=== PATIENT | male | born 1980 | race African-American/Black ===

== ENCOUNTER 2020-02-12 10:55 | Emergency (ER) | payer SELFPAY ==
[2020-02-12] MEDS ORDERED: Aspirin Chewable 81 MG TAB ONE (11:29)
[2020-02-12] MEDS ORDERED: Ketorolac Tromethamine 30 MG/ML VIAL ONE (12:19)
== END 2020-02-12 13:01 | disposition home or self-care (01) ==
LOC: ERS 10:55
DX: M54.41 Lumbago with sciatica, right side (principal); F17.210 Nicotine dependence, cigarettes, uncomplicated
CPT/HCPCS: 99283; J1885